=== PATIENT | male | born 1995 | race Two or more races ===

== ENCOUNTER 2018-09-28 09:58 | Emergency (ER) | payer OTHER ==
[~2018-09-28] VITALS: Ht 167.6 cm; Wt 74.8 kg
--- NOTE | 2018-09-28 10:05 | NUR ---
arrived ambulatory in custody chain , no acute distress seen and evaluated by Dr Mejias
[2018-09-28 10:06] VITALS: BP 132/74
== END 2018-09-28 10:10 ==
LOC: ER 10:06
DX: S00.81XA Abrasion of other part of head, initial encounter (principal); Y04.0XXA Assault by unarmed brawl or fight, initial encounter; Y93.89 Activity, other specified; Y92.89 Other specified places as the place of occurrence of the external cause; Y99.8 Other external cause status
CPT/HCPCS: 99283; A4606; Z7610